=== PATIENT | female | born 1955 | race Hispanic/Latino ===

== ENCOUNTER 2021-06-28 11:49 | Emergency (ER) | payer OTHER, MEDICAID ==
[~2021-06-28] VITALS: Ht 152.4 cm; Wt 78.9 kg
[2021-06-28 12:28] LABS: EOSINOPHILS % (AUTO) 2.5 % (0.0-8.0); LYMPHOCYTES % (AUTO) 27.9 % (21.0-51.0); MEAN CORPUSCULAR HEMOGLOBIN 28.5 pg (27.0-33.0); MEAN CORPUSCULAR HGB CONC 32.6 g/dL (32.0-36.0); MEAN CORPUSCULAR VOLUME 87.4 fL (79-99); MONOCYTES % (AUTO) 6.8 % (3.0-13.0); NEUTROPHILS % (AUTO) 61.4 % (40.0-77.0); PLATELET COUNT (AUTO) 277 K/uL (130-400); RED BLOOD CELL COUNT(AUTO) 4.35 MIL/uL (4.00-5.50); RED CELL DISTRIBUTION WIDTH 13.1 % (11.0-15.5); WHITE BLOOD COUNT (AUTO) 11.3 K/uL (4.8-10.8)
[2021-06-28 12:43] LABS: CREATININE 0.8 mg/dL (0.5-1.5); POTASSIUM 4.2 mmol/L (3.5-5.1)
[2021-06-28 12:48] LABS: ALBUMIN 3.8 g/dL (3.5-5.0); BILIRUBIN,TOTAL 0.3 mg/dL (0.2-1.0)
[2021-06-28 13:16] VITALS: BP 134/82
== END 2021-06-28 13:57 | disposition home or self-care (01) ==
LOC: EDH 11:49
DX: I10 Essential (primary) hypertension (principal); E11.9 Type 2 diabetes mellitus without complications; E78.00 Pure hypercholesterolemia, unspecified
CPT/HCPCS: 36415; 80053; 84484; 85025; 93005

== ENCOUNTER → 2022-03-08 | Outpatient (CLI) | payer OTHER, MEDICAID ==
[~2022-03-08] VITALS: Ht 149.9 cm; Wt 79.4 kg
[~2022-03-08] MED LIST: REGADENOSON 0.4 MG/5 ML PF SYG IVP SCH
== END | disposition home or self-care (01) ==
LOC: SHCH 07:42
PROVIDERS: ATTEND Internal Medicine
DX: R06.09 Other forms of dyspnea (principal)
CPT/HCPCS: 78452; 96374; 93017; J2785; A9500 ×2